=== PATIENT | male | born 1955 | race Caucasian/White ===

== ENCOUNTER 2017-11-22 12:39 | Outpatient (CLI) | payer MEDICARE ==
--- NOTE | 2017-11-22 13:21 | RAD ---
THREE VIEWS OF THE LUMBOSACRAL SPINE: COMPARISON: None. HISTORY: Low back pain radiating down the right leg with a burning sensation in the right thigh. FINDINGS: Lateral views of the lumbosacral spine were performed in neutral, flexion, and extension. The interv ertebral disks are narrowed throughout the lumbar spine. Moderate osteophytes are seen in the lower lumbar spine. Alignment is unchanged with flexion and extension without significant subluxation. Va scular calcifications are seen in the aorta. IMPRESSION: Degenerative changes of the lumbar spine with unchanged alignment with bending. POS: [facility]
--- NOTE | 2017-11-22 13:54 | MRI ---
MRI LUMBAR SPINE WITHOUT CONTRAST: HISTORY: Low back pain radiating down the right leg with a burning sensation in the right thigh. History of m ultiple falls. COMPARISON: None. TECHNIQUE: Multiplanar, multisequence MR images were obtained of the lumbar spine without contrast. FINDINGS: Generalized disk desiccation is seen. The vertebral bodies demonstrate normal height and alignment w ithout fracture or subluxation. Endplate degenerative changes are seen, surrounding L4/L5. The conu s medullaris terminates normally at L1. There are foci of high T2 signal in both kidneys, which repr esent simple cysts. The other prevertebral and paraspinal soft tissues are unremarkable. T12-L1: A small disk osteophyte complex is seen. No posterior facet arthrosis. Mild central canal stenosis. Mild bilateral neural foraminal stenosis. L1-L2: A small disk osteophyte complex is seen. No posterior facet arthrosis. Mild central canal s tenosis. Mild bilateral neural foraminal stenosis. L2-L3: A small disk osteophyte complex is seen. Mild bilateral posterior facet arthrosis. Mild musa tral canal stenosis. Mild bilateral neural foraminal stenosis. L3-L4: A moderate disk osteophyte complex is seen. Mild bilateral posterior facet arthrosis. Moder ate central canal stenosis. Mild to moderate bilateral neural foraminal stenosis. L4-L5: A moderate disk osteophyte complex is seen. Mild bilateral posterior facet arthrosis. Mild central canal stenosis. Moderate bilateral neural foraminal stenosis. L5-S1: A moderate disk osteophyte complex is seen. Mild to moderate bilateral posterior facet arthr osis. No central canal stenosis. Moderate bilateral neural foraminal stenosis, left greater than ri ght. IMPRESSION: Degenerative changes of the lumbar spine, as above. POS: [facility]
== END 2017-11-22 12:40 | disposition home or self-care (01) ==
LOC: TBSIIMAG 12:39
PROVIDERS: ATTEND Neurological Surgery
DX: M48.062 Spinal stenosis, lumbar region with neurogenic claudication (principal); M47.896 Other spondylosis, lumbar region
CPT/HCPCS: 72100; 72148

== ENCOUNTER 2017-12-26 05:27 | Inpatient (IN) | payer MEDICARE ==
[2017-12-23 13:23] VITALS: BMI 35.9
[2017-12-26] MEDS ORDERED: Sodium Chloride 0.9% 10 ML ONE (06:33)
[2017-12-26] MEDS ORDERED: Levofloxacin 500 mg/D5W 100 ml Premix Bag ONE (06:39)
[2017-12-26] MEDS ORDERED: Clindamycin/D5W 900 mg/50 ml Premix Bag ONE (06:39)
[2017-12-26 06:43] LABS: #Basophils 0.1 thou/uL (0.0-0.2); #Eosinphils 0.2 thou/uL (0.0-0.7); #Lymphocytes 1.6 thou/uL (1.20-3.40); #Monocytes 0.6 thou/uL (0.11-0.59); #Neutrophils 2.7 thou/uL (1.40-6.50); %Basophils 1.1 % (0.0-1.0); %Eosinophils 3.7 % (0.0-10.0); %Lymphocytes 30.9 % (21.0-51.0); %Monocytes 11.2 % (0.0-10.0); %Neutrophils 53.1 % (42.0-75.0); Hemoglobin 12.6 g/dL (14.0-18.0); Mean Corpuscular HGB CONC 33.8 g/dL (32.0-36.0); Mean Corpuscular Hemoglobin 31.6 pg (27.0-31.0); Mean Corpuscular Volume 93.5 fl (80.0-94.0); Platelet Count 126 thou/uL (130-400); RBC Distribution Width 13.8 % (11.5-14.5); White Blood Cell (WBC) Count 5.1 thou/uL (4.8-10.8)
[2017-12-26] MEDS ORDERED: HYDROmorphone 0.5 MG/0.5 ML SYRINGE ONE ×3 (06:59→08:45)
[2017-12-26 07:02] LABS: Anion Gap 12 mmol/L (10-20); BUN (Urea Nitrogen) 24 mg/dL (8.4-25.7); Calc. Creatinine Clearance 102 mL/min (70-130); Calcium 9.2 mg/dL (7.8-10.44); Carbon Dioxide 25 mmol/L (23-31); Chloride 106 mmol/L (98-107); Estimated GFR-MDRD 63; Glucose 162 mg/dL (80-115); Potassium 4.7 mmol/L (3.5-5.1); Sodium 138 mmol/L (136-145)
[2017-12-26] MEDS ORDERED: Ondansetron HCl/PF 4 MG/2 ML Vial ONE ×2 (08:03→11:33)
[2017-12-26] MEDS ORDERED: Promethazine HCl 25 MG/ML VIAL SLOW IVP PRN (08:23)
[2017-12-26] MEDS ORDERED: Promethazine HCl 25 MG/ML VIAL IM PRN ×2 (08:23→10:55)
[2017-12-26] MEDS ORDERED: Ondansetron HCl/PF 4 MG/2 ML Vial IVP PRN (08:23)
[2017-12-26] MEDS ORDERED: Meperidine HCl/PF 25 MG/ML VIAL SLOW IVP PRN (08:23)
--- NOTE | 2017-12-26 08:37 | OP ---
DATE OF PROCEDURE: 12/26/2017 SURGEON: Spencer James M.D. MEDICAL TRANSCRIPTION SUPERVISOR: ANGUS Lopez PROCEDURE: Right L3-4 laminectomy, facetectomy, foraminotomy, interbody arthrodesis, intravertebral biomechanical device, local morselized autograft, demineralized bone matrix, posterior lateral arthro desis and pedicle screw instrumentation, right L4-5. PROCEDURE IN DETAIL: The patient was brought to the operating room, intubated. He was rolled in the prone position on gel-filled chest rolls. Incision made exposing L3-4 bilaterally and our level was confirmed by x-ray. We performed a right-sided complete L3-4 laminectomy, facetectomy, foraminotomy , and completely decompressed the right L3-L4 lateral recess in the right L3 neural foramen. Next, t he disc was incised and debrided and the bony endplates decorticated for the purpose of arthrodesis. An appropriately sized intravertebral biomechanical PEEK device was brought into the field, filled w ith demineralized bone matrix, local morselized autograft, and tapped into place securely at L3-4. N ext, pedicle screws were placed at right L3 and right L4 using lateral fluoroscopic guidance and the positioning was confirmed with x-ray. A victoria was secured between the screws, connected by nuts which were final tightened. The wound was then extensively irrigated, immaculate hemostasis was secured. Vancomycin powder was applied and the wound was closed in anatomic layers over a drain.
[2017-12-26] MEDS ORDERED: Fentanyl 100 MCG/2 ML VIAL ONE ×8 (08:50→10:55)
[2017-12-26] MEDS ORDERED: Ketorolac Tromethamine 30 MG/ML VIAL ONE (08:57)
[2017-12-26] MEDS ORDERED: Promethazine HCl 25 MG/ML VIAL ONE (09:05)
[2017-12-26] MEDS ORDERED: Ketamine 50 MG/ML VIAL ONE (09:28)
[2017-12-26] MEDS ORDERED: Cyclobenzaprine 10 MG TAB ONE (10:13)
[2017-12-26] MEDS ORDERED: Ketamine 50 MG/ML VIAL SLOW IVP SCH (10:15)
[2017-12-26] MEDS ORDERED: Gabapentin 300 MG CAP PO SCH (10:16)
[2017-12-26] MEDS ORDERED: Gabapentin 300 MG CAP ONE (10:33)
[2017-12-26] MEDS ORDERED: Promethazine HCl 12.5 MG SUPP PR PRN (10:55)
[2017-12-26] MEDS ORDERED: HYDROcodone/Acetaminophen 10/325 mg Tablet PO PRN (10:55)
[2017-12-26] MEDS ORDERED: Milk Of Magnesia 30 ML UDCUP PO PRN (10:55)
[2017-12-26] MEDS ORDERED: Promethazine 25 MG TAB PO PRN (10:55)
[2017-12-26] MEDS ORDERED: Morphine 4 MG/ML Carpuject SLOW IVP PRN (10:55)
[2017-12-26] MEDS ORDERED: Prochlorperazine 10 MG/2 ML VIAL IM PRN (10:55)
[2017-12-26] MEDS ORDERED: Mag-Al 1200 mg/1200 mg/30 ML UDCUP PO PRN (10:55)
[2017-12-26] MEDS ORDERED: Ondansetron HCl/PF 4 MG/2 ML Vial IM PRN (10:57)
[2017-12-26] MEDS ORDERED: Morphine 4 MG/ML VIAL SLOW IVP PRN (10:59)
[2017-12-26] MEDS ORDERED: Dexamethasone 20 MG/5 ML VIAL ONE (11:33)
[2017-12-26] MEDS ORDERED: PHENYLEPHRINE-NS 100 MCG/ML 10 ML SYRINGE ONE (11:33)
[2017-12-26] MEDS ORDERED: ePHEDrine/0.9% NaCl/PF SYRINGE 50 mg/10 ml ONE (11:33)
[2017-12-26] MEDS ORDERED: PROPOFOL 200 MG/20 ML VIAL ONE (11:33)
[2017-12-26] MEDS ORDERED: Glycopyrrolate 0.2 MG/ML 5 ML SYRINGE ONE (11:33)
[2017-12-26] MEDS ORDERED: Lidocaine 1% PF 5 ML VIAL ONE (11:33)
[2017-12-26] MEDS: fentaNYL 50 mcg/hour Patch TD SCH (14:54)
[2017-12-26] MEDS ORDERED: Ketorolac Tromethamine 30 MG/ML VIAL IVP SCH (15:00)
[2017-12-26] MEDS: HYDROcodone/Acetaminophen 10/325 mg Tablet PO PRN ×2 (15:06→18:46)
[2017-12-26] MEDS: Clindamycin/D5W 900 MG in Premix Bag 1 BAG IVPB SCH (16:21)
[2017-12-26] MEDS: glipiZIDE 10 MG TAB PO SCH (18:15)
[2017-12-26] MEDS: Nitroglycerin 0.4 MG TAB (25 Tab Bottle) ONE ×2 (19:32→20:32)
[2017-12-26] MEDS: Morphine 4 MG/ML VIAL SLOW IVP PRN (19:36)
[2017-12-26 20:03] LABS: #Basophils 0.1 thou/uL (0.0-0.2); #Lymphocytes 0.4 thou/uL (1.20-3.40); #Monocytes 0.4 thou/uL (0.11-0.59); #Neutrophils 5.8 thou/uL (1.40-6.50); %Basophils 0.9 % (0.0-1.0); %Eosinophils 0.2 % (0.0-10.0); %Lymphocytes 5.6 % (21.0-51.0); %Monocytes 5.5 % (0.0-10.0); %Neutrophils 87.9 % (42.0-75.0); Hemoglobin 11.9 g/dL (14.0-18.0); Mean Corpuscular Hemoglobin 31.6 pg (27.0-31.0); Mean Corpuscular Volume 95.9 fl (80.0-94.0); Mean Platelet Volume 7.1 fL (7.4-10.4); Platelet Count 101 thou/uL (130-400); RBC Distribution Width 13.9 % (11.5-14.5); Red Blood Cell (RBC) Count 3.76 mill/uL (4.70-6.10); White Blood Cell (WBC) Count 6.6 thou/uL (4.8-10.8)
[2017-12-26 20:10] LABS: Anion Gap 18 mmol/L (10-20); BUN (Urea Nitrogen) 29 mg/dL (8.4-25.7); Calc. Creatinine Clearance 75 mL/min (70-130); Calcium 8.1 mg/dL (7.8-10.44); Carbon Dioxide 19 mmol/L (23-31); Chloride 101 mmol/L (98-107); Estimated GFR-MDRD 44; Glucose 524 mg/dL (80-115); Potassium 5.8 mmol/L (3.5-5.1); Sodium 132 mmol/L (136-145)
[2017-12-26 20:15] LABS: Troponin I Less than 0.010 ng/mL (< 0.028)
[2017-12-26 20:20] LABS: CKMB 10.5 ng/mL (0-6.6)
[2017-12-26] MEDS ORDERED: Nitroglycerin 0.4 MG TAB (25 Tab Bottle) SL PRN (20:37)
[2017-12-26] MEDS ORDERED: Dextrose 50% Abboject 50 ML SYRINGE SLOW IVP PRN (20:41)
[2017-12-26] MEDS ORDERED: Dextrose 5% in Water 1,000 ML IV PRN (20:41)
--- NOTE | 2017-12-26 20:44 | PDOC.EVN ---
Event Note - Event Note Event Note: Code green called. Patient with acute onset right chest pain radiating to jaw. Associated with diaphoresis. Resolved with nitro and morphine. Patient with hx of CAD and posterior MN. EKG without acute ST segment changes. CKMB up at 10, neg troponin. Moved patient to telemetry, checking serial cardiac markers. Patient with DM and bs 500. Adding mod ISS and restarting home DM medications. Cardiology consult for the morning.
--- NOTE | 2017-12-26 20:50 | PDOC.PN ---
- Subjective Encounter Start Date: 12/26/17 Encounter Start Time: 16:00 -: old records requested/rev consulted for medical management, s/p lumbar laminectomy, currently pain is controlled, he has drain in place Patient seen and examined. No new complaints. pt was seen at 4 pm, note written late he had code green for chest pain - Objective MAR Reviewed: Yes Vital Signs & Weight: Vital Signs (12 hours) Temp Pulse Resp 12/26/17 11:45 98.0 F 93 16 Weight Weight 250 lb I&O: 12/25/17 12/26/17 12/27/17 06:59 06:59 06:59 Intake Total 890 Output Total 650 Balance 240 Result Diagrams: 12/26/17 19:32 12/26/17 19:32 Additional Labs: Accuchecks 12/26/17 08:01 POC Glucose 260 H Radiology Reviewed by me: Yes (lumbar spine MRI) EKG Reviewed by me: Yes Phys Exam - Physical Examination Constitutional: NAD HEENT: PERRLA, moist MMs, sclera anicteric Neck: no nodes, no JVD, supple, full ROM Respiratory: no wheezing, no rales, no rhonchi Cardiovascular: RRR, no significant murmur, no rub Gastrointestinal: soft, non-tender, no distention, positive bowel sounds obesity Musculoskeletal: no edema, pulses present surgical site with dressing and drain in place Neurological: non-focal, normal sensation, moves all 4 limbs Lymphatic: no nodes Psychiatric: normal affect, A&O x 3 Skin: no rash, normal turgor Dx/Plan (1) Acute kidney failure Status: Acute (2) Hyperkalemia Code(s): E87.5 - HYPERKALEMIA Status: Acute (3) S/P lumbar laminectomy Code(s): Z98.890 - OTHER SPECIFIED POSTPROCEDURAL STATES Status: Acute (4) Diabetes type 2, uncontrolled Code(s): E11.65 - TYPE 2 DIABETES MELLITUS WITH HYPERGLYCEMIA Status: Chronic (5) Dyslipidemia Code(s): E78.5 - HYPERLIPIDEMIA, UNSPECIFIED Status: Chronic (6) Hypertension Code(s): I10 - ESSENTIAL (PRIMARY) HYPERTENSION Status: Chronic (7) Obesity (BMI 30-39.9) Code(s): E66.9 - OBESITY, UNSPECIFIED Status: Chronic (8) CAD (coronary artery disease) Code(s): I25.10 - ATHSCL HEART DISEASE OF [place] CORONARY ARTERY W/O ANG PCTRS Status: Chronic (9) Chest pain Code(s): R07.9 - CHEST PAIN, UNSPECIFIED Status: Acute - Plan cont current plan of care, PT/OT * home medication reconciled * DC ramipril for hyperkalemia * DC toradol for acute kidney failure * start IVF at 100 ml per hour * serial cardiac enzyme for chest pain * cardio consulted * will get echo tomorrow * repeat labs tomorrow * drain care as per surgeon * pain control with pain meds * medication reviewed as below * symptomatic treatment * hyperglycemia protocol treatment * add protonix daily * code status: full code * will monitor on tele. Review of Systems - Review of Systems Constitutional: negative: fever, chills, sweats, weakness, malaise, other Eyes: negative: Pain, Vision Change, Conjunctivae Inflammation, Eyelid Inflammation, Redness, Other ENT: negative: Ear Pain, Ear Discharge, Nose Pain, Nose Discharge, Nose Congestion, Mouth Pain, Mouth Swelling, Throat Pain, Throat Swelling, Other Respiratory: negative: Cough, Dry, Shortness of Breath, Hemoptysis, SOB with Excertion, Pleuritic Pain, Sputum, Wheezing Cardiovascular: chest pain. negative: palpitations, orthopnea, paroxysmal nocturnal dyspnea, edema, light headedness, other Gastrointestinal: negative: Nausea, Vomiting, Abdominal Pain, Diarrhea, Constipation, Melena, Hematochezia, Other Genitourinary: negative: Dysuria, Frequency, Incontinence, Hematuria, Retention , Other Musculoskeletal: Back Pain. negative: Neck Pain, Shoulder Pain, Arm Pain, Hand Pain, Leg Pain, Foot Pain, Other Skin: negative: Rash, Lesions, Augie, Bruising, Other Neurological: negative: Weakness, Numbness, Incoordination, Change in Speech, Confusion, Seizures, Other - Medications/Allergies Allergies/Adverse Reactions: Allergies Allergy/AdvReac Type Severity Reaction Status Date / Time Penicillins Allergy Mild Verified 12/23/17 13:20 Medications: Current Medications Hydrocodone Bitart/Acetaminophen ([place] 10/325) 1 tab PO Q4H PRN PRN Reason: PAIN (1-3) Hydrocodone Bitart/Acetaminophen ([place] 10/325) 2 tab PO Q4H PRN PRN Reason: PAIN (4-6) Last Admin: 12/26/17 18:46 Dose: 2 tab Al Hydroxide/Mg Hydroxide (Maalox) 30 ml PO Q4H PRN PRN Reason: Heartburn or Indigestion Atorvastatin Calcium (Lipitor) 10 mg PO HS [facility] Cholecalciferol (Vitamin D3) 1,000 units PO DAILY [facility] Citalopram Hydrobromide (Celexa) 20 mg PO DAILY [facility] Cyclobenzaprine HCl (Flexeril) 10 mg PO Q8H PRN PRN Reason: Muscle Spasm Cyclobenzaprine HCl (Flexeril) 10 mg PO DAILY [facility] Dextrose/Water (Dextrose 50%) 25 gm SLOW IVP PRN PRN PRN Reason: Hypoglycemia Fentanyl (Duragesic) 50 mcg TD NOW [facility] Stop: 12/29/17 10:16 Last Admin: 12/26/17 14:54 Dose: Not Given Gabapentin (Neurontin) 300 mg PO BID [facility] Glipizide (Glucotrol) 10 mg PO BID[facility] Last Admin: 12/26/17 18:15 Dose: 10 mg Glucagon (Glucagon) 1 mg IM PRN PRN PRN Reason: Hypoglycemia Clindamycin Phosphate/Dextrose (900 mg/ Device) 50 mls @ 100 mls/hr IVPB 0000, 1600 [facility] Stop: 12/27/17 00:29 Last Admin: 12/26/17 16:21 Dose: 50 mls Dextrose/Water (D5w) 1,000 mls @ 0 mls/hr IV .Q0M PRN; As Directed PRN Reason: Hypoglycemia Sodium Chloride (Normal Saline 0.9%) 1,000 mls @ 100 mls/hr IV .Q10H [facility] Insulin Human Lispro (Humalog) 0 units SC .MODERATE SLIDING SC PRN PRN Reason: Moderate Correctional Scale Insulin Human Lispro (Humalog) 0 units SC .BEDTIME SLIDING SC PRN PRN Reason: Bedtime Correctional Scale Magnesium Hydroxide (Milk Of Magnesium) 30 ml PO Q12H PRN PRN Reason: Constipation Morphine Sulfate (Morphine) 2 mg SLOW IVP Q1H PRN PRN Reason: Moderate BREAKTHRU PAIN Morphine Sulfate (Morphine) 4 mg SLOW IVP Q1H PRN PRN Reason: SEVERE BREAKTHRU PAIN Last Admin: 12/26/17 19:36 Dose: 4 mg Nitroglycerin (Nitrostat) 0.4 mg SL Q5MIN PRN PRN Reason: Chest Pain Invokana 300 Mg Po 0 each PO DAILY [facility] Victoza Inj 0 each SC DAILY [facility] Ondansetron HCl (Zofran) 4 mg IM Q6H PRN PRN Reason: Nausea/Vomiting Pioglitazone HCl (Actos) 15 mg PO DAILY [facility] Multivit/Folic Acid/Iron ( Vitamin) 1 tab PO DAILY [facility] Prochlorperazine Edisylate (Compazine) 10 mg IM Q6H PRN PRN Reason: Nausea Promethazine HCl (Phenergan) 12.5 mg IM Q4H PRN PRN Reason: Nausea/Vomiting Promethazine HCl (Phenergan) 12.5 mg PO Q4H PRN PRN Reason: Nausea/Vomiting Promethazine HCl (Phenergan Suppository) 12.5 mg [place] Q4H PRN PRN Reason: Nausea/Vomiting Sodium Chloride (Flush - Normal Saline) 10 ml IVF Q12HR [facility] Sodium Chloride (Flush - Normal Saline) 10 ml IVF PRN PRN PRN Reason: Saline Flush
[2017-12-26] MEDS ORDERED: Temazepam 15 MG CAP PO PRN (21:00)
[2017-12-26] MEDS ORDERED: Artificial Tears 18 DROP/0.9 ML EA EYE PRN (21:00)
[2017-12-26] MEDS ORDERED: Chloraseptic Spray 180 ml Bottle PO PRN (21:00)
[2017-12-26] MEDS ORDERED: Loperamide HCl 2 MG CAP PO PRN (21:00)
[2017-12-26] MEDS ORDERED: Sodium Chloride 0.65% Nasal 44 ML BOT EA NARE PRN (21:00)
[2017-12-26] MEDS ORDERED: Acetaminophen 325 MG TAB PO PRN (21:00)
[2017-12-26] MEDS ORDERED: Hydrocerin (Eucerin) Cream 120 gm Jar TOP PRN (21:00)
[2017-12-26] MEDS ORDERED: Senokot 8.6 MG TAB PO PRN (21:00)
[2017-12-26] MEDS ORDERED: Labetalol HCl 100 MG/20 ML VIAL SLOW IVP PRN (21:00)
[2017-12-26] MEDS ORDERED: Loratadine 10 MG TAB PO PRN (21:00)
[2017-12-26] MEDS ORDERED: Ramipril 5 MG CAP PO SCH (21:00)
[2017-12-26] MEDS ORDERED: Diabetic Tussin 200 MG/10 ML UDCUP PO PRN (21:00)
[2017-12-26] MEDS: Gabapentin 300 MG CAP PO SCH (22:19)
[2017-12-26] MEDS: Sodium Chloride 0.9% 1,000 ML IV SCH (22:19)
[2017-12-26] MEDS: Nitroglycerin 2% Ointment 1 INCH/1 GM Packet TOP SCH (22:20)
[2017-12-26] MEDS: Metoprolol Tartrate 25 MG TAB PO SCH (22:20)
[2017-12-26] MEDS: Atorvastatin Calcium 10 MG TAB PO SCH (22:20)
[2017-12-27 01:12] LABS: CKMB 10.3 ng/mL (0-6.6); Critical Call CKMBM RESULT DECREASING
[2017-12-27] MEDS: HYDROcodone/Acetaminophen 5/325 mg Tablet PO PRN ×4 (02:01→17:55)
[2017-12-27] MEDS: Clindamycin/D5W 900 MG in Premix Bag 1 BAG IVPB SCH ×3 (02:01→22:01)
[2017-12-27] MEDS: HumaLOG 300 UNITS/3 ML VIAL SC PRN ×5 (02:02→22:02)
[2017-12-27 04:49] LABS: Hemoglobin A1c 6.1 % (4.0-6.0)
[2017-12-27 04:56] LABS: #Lymphocytes 0.7 thou/uL (1.20-3.40); #Neutrophils 5.5 thou/uL (1.40-6.50); %Basophils 0.1 % (0.0-1.0); %Eosinophils 0.2 % (0.0-10.0); %Lymphocytes 9.2 % (21.0-51.0); %Monocytes 13.3 % (0.0-10.0); %Neutrophils 77.1 % (42.0-75.0); Hemoglobin 10.3 g/dL (14.0-18.0); Mean Corpuscular HGB CONC 33.4 g/dL (32.0-36.0); Mean Corpuscular Hemoglobin 31.8 pg (27.0-31.0); Mean Corpuscular Volume 95.1 fl (80.0-94.0); Mean Platelet Volume 7.3 fL (7.4-10.4); Platelet Count 105 thou/uL (130-400); RBC Distribution Width 13.7 % (11.5-14.5); Red Blood Cell (RBC) Count 3.25 mill/uL (4.70-6.10); White Blood Cell (WBC) Count 7.2 thou/uL (4.8-10.8)
[2017-12-27 05:18] LABS: CKMB 9.4 ng/mL (0-6.6)
[2017-12-27 05:42] LABS: ALT (SGPT) 41 U/L (8-55); AST (SGOT) 39 U/L (5-34); Albumin 3.6 g/dL (3.4-4.8); Alkaline Phosphatase 63 U/L (40-150); Anion Gap 14 mmol/L (10-20); BUN (Urea Nitrogen) 34 mg/dL (8.4-25.7); Calc. Creatinine Clearance 82 mL/min (70-130); Calcium 8.1 mg/dL (7.8-10.44); Carbon Dioxide 21 mmol/L (23-31); Cardiac Risk 3.8 (Less than 4.5); Chloride 103 mmol/L (98-107); Cholesterol 129 mg/dl (< 200 Desired); Estimated GFR-MDRD 49; Globulin 2.5 g/dL (2.4-3.5); Glucose 325 mg/dL (80-115); HDL Cholesterol 34 mg/dL (>60 Neg Risk); LDL Cholesterol, Calculated 65 mg/dL; Potassium 5.1 mmol/L (3.5-5.1); Protein, Total 6.1 g/dL (5.8-8.1); Sodium 133 mmol/L (136-145); Triglycerides 149 mg/dL (Less than 150)
[2017-12-27] MEDS: Nitroglycerin 2% Ointment 1 INCH/1 GM Packet TOP SCH ×3 (06:31→22:02)
[2017-12-27] MEDS: fentaNYL 50 mcg/hour Patch TD SCH (07:51)
[2017-12-27] MEDS: Sodium Chloride 0.9% 1,000 ML IV SCH ×3 (08:46→20:33)
[2017-12-27] MEDS: glipiZIDE 10 MG TAB PO SCH ×2 (08:47→16:42)
[2017-12-27] MEDS: Morphine 4 MG/ML VIAL SLOW IVP PRN (08:48)
[2017-12-27] MEDS: Gabapentin 300 MG CAP PO SCH ×2 (08:50→20:32)
[2017-12-27] MEDS: Metoprolol Tartrate 25 MG TAB PO SCH ×2 (08:50→20:32)
[2017-12-27] MEDS: Cyclobenzaprine 10 MG TAB PO SCH (08:50)
[2017-12-27] MEDS: Prenatal Vitamin 1 TAB PO SCH (08:51)
[2017-12-27] MEDS: Citalopram 20 MG TAB PO SCH (08:51)
[2017-12-27] MEDS: Pioglitazone HCl 15 MG TAB PO SCH (08:51)
[2017-12-27] MEDS ORDERED: INVOKANA 300 MG SCH (09:00)
[2017-12-27] MEDS ORDERED: Non-Formulary Item 1 EACH (Canagliflozin [Invokana] 300 MG) PO SCH (09:00)
[2017-12-27] MEDS ORDERED: Non-Formulary Item 1 EACH (Liraglutide [Victoza 3-Pak] 1.8 MG) SC SCH (09:00)
[2017-12-27] MEDS ORDERED: VICTOZA INJ SC SCH (09:00)
--- NOTE | 2017-12-27 12:35 | PDOC.PN ---
- Subjective Encounter Start Date: 12/27/17 Encounter Start Time: 07:40 Patient seen and examined for medical management, no chest pain today, only has back pain. No overnight events - Objective Resuscitation Status: Resuscitation Status FULL:Full Resuscitation MAR Reviewed: Yes Vital Signs & Weight: Vital Signs (12 hours) Temp Pulse Resp BP Pulse Ox 12/27/17 09:40 95 12/27/17 08:40 97.4 F L 95 18 153/70 H 100 12/27/17 04:00 98.7 F 79 19 103/54 L 94 L 12/27/17 00:44 98.9 F 87 16 139/60 95 Weight Weight 250 lb I&O: 12/26/17 12/27/17 12/28/17 06:59 06:59 06:59 Intake Total 890 Output Total 800 60 Balance 90 -60 Result Diagrams: 12/27/17 03:42 12/27/17 03:42 Additional Labs: Accuchecks 12/27/17 12/27/17 12/27/17 10:40 06:23 00:05 POC Glucose 242 H 341 H 387 H 12/26/17 19:30 POC Glucose 509 H EKG Reviewed by me: Yes (nsr) Phys Exam - Physical Examination Constitutional: NAD HEENT: PERRLA, moist MMs, sclera anicteric Neck: no JVD, supple Respiratory: no wheezing, no rales, no rhonchi Cardiovascular: RRR, no significant murmur, no rub Gastrointestinal: soft, non-tender, no distention, positive bowel sounds Musculoskeletal: no edema, pulses present drain in back+ Neurological: non-focal, normal sensation, moves all 4 limbs Lymphatic: no nodes Psychiatric: normal affect, A&O x 3 Skin: no rash, normal turgor Dx/Plan (1) Acute kidney failure Status: Acute Comment: improving (2) Hyperkalemia Code(s): E87.5 - HYPERKALEMIA Status: Resolved (3) S/P lumbar laminectomy Code(s): Z98.890 - OTHER SPECIFIED POSTPROCEDURAL STATES Status: Acute (4) Diabetes type 2, uncontrolled Code(s): E11.65 - TYPE 2 DIABETES MELLITUS WITH HYPERGLYCEMIA Status: Chronic (5) Dyslipidemia Code(s): E78.5 - HYPERLIPIDEMIA, UNSPECIFIED Status: Chronic (6) Hypertension Code(s): I10 - ESSENTIAL (PRIMARY) HYPERTENSION Status: Chronic (7) Obesity (BMI 30-39.9) Code(s): E66.9 - OBESITY, UNSPECIFIED Status: Chronic (8) CAD (coronary artery disease) Code(s): I25.10 - ATHSCL HEART DISEASE OF [place] CORONARY ARTERY W/O ANG PCTRS Status: Chronic (9) Chest pain Code(s): R07.9 - CHEST PAIN, UNSPECIFIED Status: Resolved (10) Rhabdomyolysis Code(s): M62.82 - RHABDOMYOLYSIS Status: Acute (11) Anxiety and depression Code(s): F41.9 - ANXIETY DISORDER, UNSPECIFIED; F32.9 - MAJOR DEPRESSIVE DISORDER, SINGLE EPISODE, UNSPECIFIED Status: Chronic - Plan cont current plan of care, plan discussed w/ family, PT/OT * continue gentle IVF * repeat labs tomorrow * cardiology consulted * echo pending * discussed with * still draining lot in VIVIANE drain * medication reviewed as below * symptomatic treatment. * will monitor one more day * possible discharge tomorrow Review of Systems - Review of Systems Constitutional: negative: fever, chills, sweats, weakness, malaise, other Eyes: negative: Pain, Vision Change, Conjunctivae Inflammation, Eyelid Inflammation, Redness, Other ENT: negative: Ear Pain, Ear Discharge, Nose Pain, Nose Discharge, Nose Congestion, Mouth Pain, Mouth Swelling, Throat Pain, Throat Swelling, Other Respiratory: negative: Cough, Dry, Shortness of Breath, Hemoptysis, SOB with Excertion, Pleuritic Pain, Sputum, Wheezing Cardiovascular: negative: chest pain, palpitations, orthopnea, paroxysmal nocturnal dyspnea, edema, light headedness, other Gastrointestinal: negative: Nausea, Vomiting, Abdominal Pain, Diarrhea, Constipation, Melena, Hematochezia, Other Genitourinary: negative: Dysuria, Frequency, Incontinence, Hematuria, Retention , Other Musculoskeletal: Back Pain. negative: Neck Pain, Shoulder Pain, Arm Pain, Hand Pain, Leg Pain, Foot Pain, Other - Medications/Allergies Allergies/Adverse Reactions: Allergies Allergy/AdvReac Type Severity Reaction Status Date / Time Penicillins Allergy Mild Verified 12/23/17 13:20 Medications: Current Medications Acetaminophen (Tylenol) 650 mg PO Q4H PRN PRN Reason: Headache/Fever or Mild Pain Hydrocodone Bitart/Acetaminophen ([place] 5/325) 1 tab PO Q4H PRN PRN Reason: Moderate Pain (4-6) Last Admin: 12/27/17 11:58 Dose: 1 tab Al Hydroxide/Mg Hydroxide (Maalox) 30 ml PO Q4H PRN PRN Reason: Heartburn or Indigestion Artificial Tears (Tears Naturale) 0 drop EA EYE PRN PRN PRN Reason: Dry Eyes Atorvastatin Calcium (Lipitor) 10 mg PO [facility] Last Admin: 12/26/17 22:20 Dose: 10 mg Cholecalciferol (Vitamin D3) 1,000 units PO DAILY [facility] Last Admin: 12/27/17 08:50 Dose: 1,000 units Citalopram Hydrobromide (Celexa) 20 mg PO DAILY [facility] Last Admin: 12/27/17 08:51 Dose: 20 mg Cyclobenzaprine HCl (Flexeril) 10 mg PO Q8H PRN PRN Reason: Muscle Spasm Cyclobenzaprine HCl (Flexeril) 10 mg PO DAILY [facility] Last Admin: 12/27/17 08:50 Dose: 10 mg Dextrose/Water (Dextrose 50%) 25 gm SLOW IVP PRN PRN PRN Reason: Hypoglycemia Emollient Cream (Hydrocerin Cream) 0 gm TOP BIDPRN PRN PRN Reason: Dry Skin Fentanyl (Duragesic) 50 mcg TD NOW [facility] Stop: 12/29/17 10:16 Last Admin: 12/27/17 07:51 Dose: Not Given Gabapentin (Neurontin) 300 mg PO BID [facility] Last Admin: 12/27/17 08:50 Dose: 300 mg Glipizide (Glucotrol) 10 mg PO BID-AC [facility] Last Admin: 12/27/17 08:47 Dose: 10 mg Glucagon (Glucagon) 1 mg IM PRN PRN PRN Reason: Hypoglycemia Guaifenesin (Robitussin Sf) 200 mg PO Q4H PRN PRN Reason: Cough Dextrose/Water (D5w) 1,000 mls @ 0 mls/hr IV .Q0M PRN; As Directed PRN Reason: Hypoglycemia Sodium Chloride (Normal Saline 0.9%) 1,000 mls @ 100 mls/hr IV .Q10H [facility] Last Admin: 12/27/17 08:46 Dose: 1,000 mls Clindamycin Phosphate/Dextrose (900 mg/ Device) 50 mls @ 100 mls/hr IVPB Q8HR [facility] Insulin Human Lispro (Humalog) 0 units SC .MODERATE SLIDING SC PRN PRN Reason: Moderate Correctional Scale Last Admin: 12/27/17 12:00 Dose: 6 unit Insulin Human Lispro (Humalog) 0 units SC .BEDTIME SLIDING SC PRN PRN Reason: Bedtime Correctional Scale Last Admin: 12/27/17 02:02 Dose: 5 unit Labetalol HCl (Normodyne) 20 mg SLOW IVP Q4H PRN PRN Reason: Systolic BP > 180 Loperamide HCl (Imodium) 2 mg PO PRN PRN PRN Reason: Diarrhea/Loose Stools Loratadine (Claritin) 10 mg PO DAILYPRN PRN PRN Reason: Sinus Symptoms Magnesium Hydroxide (Milk Of Magnesium) 30 ml PO Q12H PRN PRN Reason: Constipation Metoprolol Tartrate (Lopressor) 25 mg PO BID [facility] Last Admin: 12/27/17 08:50 Dose: 25 mg Morphine Sulfate (Morphine) 2 mg SLOW IVP Q1H PRN PRN Reason: Moderate BREAKTHRU PAIN Morphine Sulfate (Morphine) 4 mg SLOW IVP Q1H PRN PRN Reason: SEVERE BREAKTHRU PAIN Last Admin: 12/27/17 08:48 Dose: 4 mg Nitroglycerin (Nitrostat) 0.4 mg SL Q5MIN PRN PRN Reason: Chest Pain Nitroglycerin (Nitro-Bid 2% Ointment) 0.5 inch TOP Q8HR [facility] Last Admin: 12/27/17 06:31 Dose: 0.5 inch Ondansetron HCl (Zofran) 4 mg IM Q6H PRN PRN Reason: Nausea/Vomiting Phenol (Chloraseptic [place] 180 Ml Bot) 0 ml PO PRN PRN PRN Reason: Sore Throat Pioglitazone HCl (Actos) 15 mg PO DAILY [facility] Last Admin: 12/27/17 08:51 Dose: 15 mg Multivit/Folic Acid/Iron ( Vitamin) 1 tab PO DAILY [facility] Last Admin: 12/27/17 08:51 Dose: 1 tab Prochlorperazine Edisylate (Compazine) 10 mg IM Q6H PRN PRN Reason: Nausea Promethazine HCl (Phenergan) 12.5 mg IM Q4H PRN PRN Reason: Nausea/Vomiting Promethazine HCl (Phenergan) 12.5 mg PO Q4H PRN PRN Reason: Nausea/Vomiting Promethazine HCl (Phenergan Suppository) 12.5 mg [place] Q4H PRN PRN Reason: Nausea/Vomiting Senna (Senokot) 2 tab PO HSPRN PRN PRN Reason: Constipation Last Admin: 12/27/17 08:50 Dose: 2 tab Sodium Chloride (Flush - Normal Saline) 10 ml IVF Q12HR [facility] Last Admin: 12/27/17 08:53 Dose: 10 ml Sodium Chloride (Flush - Normal Saline) 10 ml IVF PRN PRN PRN Reason: Saline Flush Sodium Chloride ([place] Nasal [place] 0.65%) 0 ml EA NARE QIDPRN PRN PRN Reason: Nasal Congestion Temazepam (Restoril) 15 mg PO HSPRN PRN PRN Reason: Insomnia
--- NOTE | 2017-12-27 14:15 | CON ---
DATE OF CONSULTATION: 12/27/2017 REASON FOR CONSULTATION: Chest pain and hypertension. HISTORY OF PRESENT ILLNESS: Mr. Harper is a very pleasant 62-year-old gentleman who has been seen and evaluated by Cardiology in [place], [place]. He has a history of complete chronic occlusion of the right coronary artery in addition to 40% and 60% stenosis of other vessels. This was diagnosed in 04 05. He has intermittently needed nitroglycerin for chest pain with exertion. His chest pain though has been stable over the last 9 years. He states his chest pain has not changed in frequency, intens ity or duration. He recently underwent lumbar surgery. He had an acute onset of chest pain. His blood pressure at th at time was also 200. Kamini Casey was called. He states he took 4 sublingual nitroglycerins with rel ief. At this point, he is resting comfortably. He did receive a recent stress test in addition to clearance by his primary dollyman in [place]. PAST MEDICAL HISTORY: Hyperlipidemia, diabetes mellitus, hypertension and CAD. ALLERGIES: PENICILLIN. SOCIAL HISTORY: No current tobacco or alcohol use. REVIEW OF SYSTEMS: Ten-point review of systems reviewed and as above, otherwise negative. HOME MEDICATIONS: Include fentanyl, vitamin D3, folic acid, Flexeril, citalopram, simvastatin, gabap entin, ramipril, Glucotrol, Invokana, Actos and Victoza. PHYSICAL EXAMINATION: GENERAL: Patient is a pleasant male who is in no acute distress. The patient appears his stated age . VITAL SIGNS: Blood pressure 153/70, pulse 95, temperature 97.4. NEUROLOGIC: The patient is alert and oriented times 3 with no focal neurologic deficits. HEENT: Sclerae without icterus. Mouth has moist mucous membranes with normal pallor. NECK: No JVD. Carotid upstroke brisk. No bruits bilaterally. LUNGS: Clear to auscultation with unlabored respirations. BACK: No scoliosis or kyphosis. CARDIAC: Regular rate and rhythm with normal S1 and S2. No S3 or S4 noted. No significant rubs, mur murs, thrills, or gallops noted throughout the precordium. PMI is not displaced. There is no parast ernal heave. ABDOMEN: Soft, nontender, nondistended. No peritoneal signs present. No hepatosplenomegaly. No abnormal striae. EXTREMITIES: 2+ femoral and 2+ dorsalis pedis pulses. No cyanosis, clubbing, or edema. SKIN: No gross abnormalities. PERTINENT LABORATORY DATA: CK troponin negative. Hemoglobin 10.3, creatinine 1.4. IMAGING DATA: EKG, normal sinus rhythm with no ST or T wave changes. IMPRESSION: 1. Acute onset chest pain. 2. Malignant hypertension. 3. Coronary artery disease. RECOMMENDATIONS: Mr. Harper recently underwent a lumbar surgery. His symptoms may be related to m alignant hypertension. It is hard to state whether his pain occurred prior to his increased blood pr essure. His blood pressure was 200 with appropriate response to nitroglycerin. At this point, would recommend conservative therapy given his recent lumbar surgery and the fact that he had no EKG streeter es and negative enzymes. Would start aspirin as soon as cleared by Dr. James. Continue atorvasta tin in addition to metoprolol. May consider increasing metoprolol if needed. May also add low dose losartan. Echo pending.
[2017-12-27] MEDS: Cyclobenzaprine 10 MG TAB PO PRN (15:05)
[2017-12-27] MEDS: Atorvastatin Calcium 10 MG TAB PO SCH (20:33)
[2017-12-28] MEDS: HYDROcodone/Acetaminophen 5/325 mg Tablet PO PRN ×2 (03:53→08:16)
[2017-12-28] MEDS: Morphine 4 MG/ML VIAL SLOW IVP PRN (04:38)
[2017-12-28] MEDS: Cyclobenzaprine 10 MG TAB PO PRN (04:39)
[2017-12-28 05:23] LABS: #Eosinphils 0.2 thou/uL (0.0-0.7); #Lymphocytes 1.7 thou/uL (1.20-3.40); #Monocytes 0.9 thou/uL (0.11-0.59); #Neutrophils 5.9 thou/uL (1.40-6.50); %Basophils 0.3 % (0.0-1.0); %Eosinophils 2.5 % (0.0-10.0); %Lymphocytes 19.7 % (21.0-51.0); %Neutrophils 67.5 % (42.0-75.0); Hemoglobin 11.2 g/dL (14.0-18.0); Mean Corpuscular HGB CONC 33.1 g/dL (32.0-36.0); Mean Corpuscular Hemoglobin 31.7 pg (27.0-31.0); Mean Corpuscular Volume 95.7 fl (80.0-94.0); Mean Platelet Volume 7.2 fL (7.4-10.4); Platelet Count 128 thou/uL (130-400); RBC Distribution Width 14.2 % (11.5-14.5); Red Blood Cell (RBC) Count 3.53 mill/uL (4.70-6.10); White Blood Cell (WBC) Count 8.7 thou/uL (4.8-10.8)
[2017-12-28 05:40] LABS: Anion Gap 12 mmol/L (10-20); BUN (Urea Nitrogen) 25 mg/dL (8.4-25.7); CK (CPK) 476 U/L (30-200); Calc. Creatinine Clearance 129 mL/min (70-130); Calcium 8.5 mg/dL (7.8-10.44); Carbon Dioxide 24 mmol/L (23-31); Chloride 105 mmol/L (98-107); Estimated GFR-MDRD 74; Glucose 97 mg/dL (80-115); Potassium 4.8 mmol/L (3.5-5.1); Sodium 136 mmol/L (136-145)
[2017-12-28] MEDS: Clindamycin/D5W 900 MG in Premix Bag 1 BAG IVPB SCH (05:48)
[2017-12-28] MEDS: Nitroglycerin 2% Ointment 1 INCH/1 GM Packet TOP SCH (05:48)
[2017-12-28] MEDS: Pioglitazone HCl 15 MG TAB PO SCH (08:11)
[2017-12-28] MEDS: Cyclobenzaprine 10 MG TAB PO SCH (08:11)
[2017-12-28] MEDS: Prenatal Vitamin 1 TAB PO SCH (08:11)
[2017-12-28] MEDS: Citalopram 20 MG TAB PO SCH (08:11)
[2017-12-28] MEDS: Metoprolol Tartrate 25 MG TAB PO SCH (08:11)
[2017-12-28] MEDS: glipiZIDE 10 MG TAB PO SCH (08:12)
[2017-12-28] MEDS: Gabapentin 300 MG CAP PO SCH (08:12)
[2017-12-28 08:21] VITALS: TEMP 99.1
[2017-12-28] MEDS: fentaNYL 50 mcg/hour Patch TD SCH (11:56)
[2017-12-28 11:58] VITALS: BP 107/58
--- NOTE | 2017-12-28 12:34 | DIS ---
DATE OF ADMISSION: 12/26/2017 DATE OF DISCHARGE: 12/28/2017 PRIMARY CARE PHYSICIAN: [facility] call admission. DISCHARGE DISPOSITION: Home. PRIMARY DISCHARGE DIAGNOSES: 1. Status post lumbar laminectomy. 2. Acute kidney failure. 3. Rhabdomyolysis. 4. Chest pain, ruled out acute coronary syndrome. 5. Hyperkalemia, resolved. SECONDARY DISCHARGE DIAGNOSES: Obesity with body mass index 39, hypertension, dyslipidemia, diabetes type 2, coronary artery disease and chronic low back pain. PRIMARY PROCEDURE/OPERATION: Lumbar laminectomy. RADIOLOGICAL INVESTIGATION: Echocardiography showed normal EF. SIGNIFICANT LABORATORY DATA: WBC 8.7, hemoglobin 11.2, and platelet 128. Sodium 136, potassium 4.8, BUN 25, creatinine 1.01, CK 476 and LDL 65. DISCHARGE MEDICATIONS: The patient will continue all his previous medications; Invokana 300 mg p.o. daily, vitamin D3 1000 unit p.o. daily, Celexa 20 mg p.o. daily, clindamycin 300 mg p.o. q.6 hourly f or 10 days, Flexeril 10 mg p.o. daily, fentanyl patch every 72 hours, folic acid with multivitamin 1 tablet p.o. daily, gabapentin 300 mg p.o. b.i.d., Glucotrol 10 mg p.o. b.i.d., Victoza 1.8 mg subcuta neously daily, Actos 15 mg p.o. daily, ramipril 10 mg p.o. b.i.d., Zocor 20 mg p.o. at bedtime. Aspi rin cleared per neurosurgeon. CONTRAINDICATIONS: None. CODE STATUS: FULL CODE. INPATIENT CONSULTANTS: Dr. James was primary while in hospital. Sound team was consulted for med ical comanagement. Cardiology was consulted for elevated CK-MB. ALLERGIES: PENICILLIN. TEST RESULTS PENDING ON DISCHARGE: None. DISCHARGE PLAN: Post hospital, patient will follow up with Dr. Erika Palmer. The patient will follow up with primary care physician. HOSPITAL COURSE: A 62-year-old male who has chronic low back pain and he was electively admitted by Dr. James for lumbar laminectomy, which was done on 12/26/2017. Postoperatively, patient was at s urgical floor and we were consulted for medical comanagement. Patient's all medical problems remained stable and we resumed patient's home medication. During even ing time, patient had code green and he was complaining of acute chest pain and that is why we did ca rdiac enzymes that showed elevated CK as well as CK-MB. The patient was transferred to telemetry mariya or. We did serial cardiac enzymes. The patient's acute coronary syndrome was ruled out. His tropon ins remain negative. We did echocardiography which was normal. Cardiology evaluated this patient an d they recommended that at this point, no cardiac etiology found and he will resume aspirin when neur osurgeon clears him for aspirin. At this point, patient had routine blood test, which also showed acute kidney failure, hyperkalemia, and rhabdomyolysis. We will give him IV fluid and with that his renal function improved. His potass ium improved and his CK is also improving. Upon discharge, we asked him to continue all his previous medication and follow up with primary care physician. The patient is seen and examined at bedside today. He does not have any complaints today. Review of systems reviewed with him and negative. PHYSICAL EXAMINATION: VITAL SIGNS: Currently, vital signs, temperature 99.1, pulse 91, respiratory rate 18, saturation 93% on room air, weight 271 pounds, blood pressure 138/69. GENERAL: The patient is currently alert, awake, no acute distress. HEAD: Normocephalic, atraumatic. EYES: Pupils round and reactive to light. Extraocular muscle intact. ENT: Oropharynx within normal limits. Moist mucous membranes, no oral lesions. No pharyngeal eryth justin, no exudate. NECK: Supple, no JVD, no thyromegaly, no carotid bruit. LUNGS: Clear to auscultation without any rhonchi or rales. CARDIAC: S1, S2 regular without any murmur. ABDOMEN: Soft and benign without any tenderness. EXTREMITIES: No edema. During this hospital course after surgery, patient had drain and neurosurgeon gave him a prescription for clindamycin for 10 days.
--- NOTE | 2017-12-28 15:31 | PDOC.CTH ---
Cardiology Progress Note - Subjective Doing well. No recurrent episdoes of CP - Objective Vital Signs Temp Pulse Resp BP Pulse Ox 12/28/17 11:30 99.1 F 82 18 107/58 L 93 L 12/28/17 08:05 99.1 F 91 18 134/73 93 L 12/28/17 04:00 98.7 F 95 20 144/67 H 95 Weight 271 lb 8 oz 12/27/17 12/28/17 12/29/17 06:59 06:59 06:59 Intake Total 890 2874 Output Total 800 2250 Balance 90 624 - Physical Examination General/Neuro: alert & oriented x3, NAD, other: Neck: carotid US brisk, no JVD present, other: Lungs: CTA, unlabored respirations, other: Heart: PMI normal, RRR, other: Abdomen: no HSM, NT/ND, soft, other: Extremities: + femoral B - Labs Result Diagrams: 12/28/17 04:10 12/28/17 04:10 Troponin/CKMB CK-MB (CK-2) 9.4 ng/mL (0-6.6) H* 12/27/17 03:42 Troponin I 0.020 ng/mL (< 0.028) 12/27/17 03:42 - Assessment/Plan 1. CP 2. CAD Pt doing well No recurrent episodes. EF normal on echo. Treat medically. Pt with known 100% occlusion in past. Symptoms likely related to demand ischemia with BP of 200 systolic. Recommend control of BP. Fu with primary hardness inspector in [place].
--- NOTE | 2017-12-28 20:18 | EKG ---
Test Reason : STAT Blood Pressure : / mmHG Vent. Rate : 115 BPM Atrial Rate : 115 BPM P-R Int : 160 ms QRS Dur : 098 ms QT Int : 340 ms P-R-T Axes : 065 015 013 degrees QTc Int : 470 ms Sinus tachycardia Otherwise normal ECG No previous ECGs available Confirmed by RICARDO EWING (2) on 12/28/2017 8:17:36 PM Referred By: ROMELIA Confirmed By:RICARDO EWING
--- NOTE | 2017-12-28 20:18 | EKG ---
Test Reason : CODE GREEN Blood Pressure : / mmHG Vent. Rate : 115 BPM Atrial Rate : 115 BPM P-R Int : 152 ms QRS Dur : 082 ms QT Int : 326 ms P-R-T Axes : 063 023 008 degrees QTc Int : 450 ms Sinus tachycardia Low voltage QRS Septal infarct , age undetermined Abnormal ECG When compared with ECG of 26-DEC-2017 19:34, (Unconfirmed) Septal infarct is now Present ST no longer depressed in Anterior leads Nonspecific T wave abnormality now evident in Anterior leads Confirmed by RICARDO EWING (2) on 12/28/2017 8:17:44 PM Referred By: ROMELIA Confirmed By:RICARDO EWING
== END 2017-12-28 12:01 | disposition home or self-care (01) | DRG 460 ==
LOC: SURG A 05:27 → SJJU 12:38 → 2NO 19:58
PROVIDERS: ADMIT Neurological Surgery; ATTEND Neurological Surgery
PROC: 0SG00AJ Fusion of Lumbar Vertebral Joint with Interbody Fusion Device, Posterior Approach, Anterior Column, Open Approach (ICD-10-PCS; principal; 2017-12-26)
PROC: 01NB0ZZ Release Lumbar Nerve, Open Approach (ICD-10-PCS; 2017-12-26)
DX: M48.061 Spinal stenosis, lumbar region without neurogenic claudication (principal); N17.9 Acute kidney failure, unspecified; M62.82 Rhabdomyolysis; E66.9 Obesity, unspecified; Z68.39 Body mass index [BMI] 39.0-39.9, adult; I10 Essential (primary) hypertension; E78.5 Hyperlipidemia, unspecified; E11.9 Type 2 diabetes mellitus without complications; I25.10 Atherosclerotic heart disease of native coronary artery without angina pectoris; F41.9 Anxiety disorder, unspecified; F32.9 Major depressive disorder, single episode, unspecified; E87.5 Hyperkalemia; R07.9 Chest pain, unspecified; I25.2 Old myocardial infarction; Z88.0 Allergy status to penicillin; Z79.899 Other long term (current) drug therapy
CPT/HCPCS: 36415; 36416; 76001; 80048; 80053; 80061; 82550; 82553; 83036; 83880; 84443; 84484; 85025; 93005; 93010; 93306; A4216; C1713; C1768; G8978-GP-CK; G8979-GP-CJ; J0131; J0780; J1100; J1170; J1885; J1956; J2001; J2270; J2405; J2550; J2704; J3010; J3370; J3490

== ENCOUNTER 2018-01-10 16:15 | Outpatient (CLI) | payer MEDICARE ==
--- NOTE | 2018-01-10 17:42 | RAD ---
TWO VIEWS OF THE LUMBAR SPINE 01/10/18 COMPARISON: 11/22/17 HISTORY: Evaluate lumbar spine following surgery, lumbar stenosis with neurogenic claudication FINDINGS: The lateral examination demonstrates disc space narrowing with degenerative end plate change as well as posterior and anterior osteophyte formation at L3-4, L4-5 and L5-S1. There is atherosclerotic calc ifications of the abdominal aorta and its branches. There is multilevel lower lumbar spine facet hype rtrophy. Since the prior examination, there has been placement of right sided L3 and L4 pedicle screw s with a vertically oriented interlocking victoria and an intervening disc device. No evidence for hardwar e failure. IMPRESSION: Multilevel degenerative changes within the lumbar spine. Interval right sided posterior fusion at L3- 4. POS: OJ
== END 2018-01-10 16:16 | disposition home or self-care (01) ==
LOC: TBSIIMAG 16:15
PROVIDERS: ATTEND Neurological Surgery
DX: M48.062 Spinal stenosis, lumbar region with neurogenic claudication (principal); M47.896 Other spondylosis, lumbar region; Z98.1 Arthrodesis status
CPT/HCPCS: 72100

== ENCOUNTER 2018-03-07 13:14 | Outpatient (CLI) | payer MEDICARE ==
--- NOTE | 2018-03-07 14:18 | RAD ---
LUMBAR SPINE 2 VIEWS: Date: 03/07/18 HISTORY: M48.061. COMPARISON: Spine radiographs dated 01/10/18. FINDINGS: Right unilateral transpedicular screws are present at L3-L4 with diskectomy changes. No acute superim posed fracture or malalignment. Moderate narrowing L4-5 and L5-S1 disc spaces. No migration of the disc spacer. IMPRESSION: 1. Unchanged appearance of the posterior spinal fusion right side at L3-L4. 2. Possible aneurysmal dilatation of the distal abdominal aorta just above the iliac bifurcation. POS: OJ
== END 2018-03-07 13:15 | disposition home or self-care (01) ==
LOC: TBSIIMAG 13:14
PROVIDERS: ATTEND Neurological Surgery
DX: M48.061 Spinal stenosis, lumbar region without neurogenic claudication (principal); Z98.1 Arthrodesis status
CPT/HCPCS: 72100

== ENCOUNTER 2018-12-11 05:58 | Inpatient (IN) | payer MEDICARE ==
[2018-12-08 12:16] VITALS: BMI 35.9
[2018-12-11 06:40] LABS: #Eosinphils 0.1 thou/uL (0.0-0.7); #Lymphocytes 1.5 thou/uL (1.20-3.40); #Monocytes 0.8 thou/uL (0.11-0.59); #Neutrophils 3.8 thou/uL (1.40-6.50); %Basophils 0.5 % (0.0-1.0); %Eosinophils 1.8 % (0.0-10.0); %Lymphocytes 23.8 % (21.0-51.0); %Monocytes 12.5 % (0.0-10.0); %Neutrophils 61.3 % (42.0-75.0); Hemoglobin 12.8 g/dL (14.0-18.0); Mean Corpuscular HGB CONC 32.9 g/dL (32.0-36.0); Mean Corpuscular Hemoglobin 31.8 pg (27.0-31.0); Mean Corpuscular Volume 96.6 fL (78.0-98.0); Mean Platelet Volume 7.3 fL (7.4-10.4); Platelet Count 120 thou/uL (130-400); RBC Distribution Width 13.9 % (11.5-14.5); Red Blood Cell (RBC) Count 4.02 mill/uL (4.70-6.10); White Blood Cell (WBC) Count 6.3 thou/uL (4.8-10.8)
[2018-12-11] MEDS ORDERED: Sodium Chloride 0.9% 10 ML ONE (06:40)
[2018-12-11] MEDS ORDERED: Fentanyl 100 MCG/2 ML VIAL ONE ×4 (06:48→10:25)
[2018-12-11 06:54] LABS: Anion Gap 14 mmol/L (10-20); BUN (Urea Nitrogen) 28 mg/dL (8.4-25.7); Calc. Creatinine Clearance 114 mL/min (70-130); Calcium 9.5 mg/dL (7.8-10.44); Carbon Dioxide 22 mmol/L (23-31); Chloride 106 mmol/L (98-107); Estimated GFR-MDRD 72; Glucose 108 mg/dL (80-115); Potassium 4.7 mmol/L (3.5-5.1); Sodium 137 mmol/L (136-145)
[2018-12-11] MEDS ORDERED: Clindamycin/D5W 900 mg/50 ml Premix Bag ONE (06:56)
[2018-12-11] MEDS ORDERED: Levofloxacin 500 mg/D5W 100 ml Premix Bag ONE (06:56)
[2018-12-11] MEDS ORDERED: Promethazine HCl 25 MG/ML VIAL IM PRN ×2 (08:50→10:56)
[2018-12-11] MEDS ORDERED: Promethazine HCl 25 MG/ML VIAL SLOW IVP PRN (08:50)
[2018-12-11] MEDS ORDERED: HYDROmorphone 2 MG/ML VIAL SLOW IVP PRN (08:50)
[2018-12-11] MEDS ORDERED: Ondansetron HCl/PF 4 MG/2 ML Vial IVP PRN (08:50)
[2018-12-11] MEDS ORDERED: HYDROmorphone 2 MG/ML VIAL ONE (08:58)
[2018-12-11] MEDS ORDERED: Midazolam HCl 2 mg/2 ml Vial ONE (09:28)
[2018-12-11] MEDS ORDERED: Milk Of Magnesia 30 ML UDCUP PO PRN (10:56)
[2018-12-11] MEDS ORDERED: Promethazine 25 MG TAB PO PRN (10:56)
[2018-12-11] MEDS ORDERED: traMADol HCl 50 MG TAB PO PRN (10:56)
[2018-12-11] MEDS ORDERED: Promethazine HCl 12.5 MG SUPP PR PRN (10:56)
[2018-12-11] MEDS ORDERED: HYDROcodone/Acetaminophen 10/325 mg Tablet PO PRN (10:56)
[2018-12-11] MEDS ORDERED: Mag-Al 1200 mg/1200 mg/30 ML UDCUP PO PRN (10:56)
[2018-12-11] MEDS ORDERED: Morphine 2 MG/ML SYRINGE SLOW IVP PRN (11:01)
[2018-12-11] MEDS ORDERED: Ondansetron PF 4 MG/2 ML Vial IM PRN (11:01)
[2018-12-11] MEDS: tiZANidine HCl 4 MG TAB PO PRN (11:14)
[2018-12-11] MEDS: HYDROcodone/Acetaminophen 10/325 mg Tablet PO PRN ×3 (11:14→21:06)
[2018-12-11] MEDS: Sodium Chloride 0.9% 1,000 ML IV SCH (11:14)
[2018-12-11] MEDS: Morphine 4 MG/ML VIAL SLOW IVP PRN (12:43)
[2018-12-11] MEDS ORDERED: cloNIDine 0.1 MG TAB PO PRN (14:21)
[2018-12-11] MEDS ORDERED: hydrALAZINE 20 MG/ML VIAL SLOW IVP PRN (14:21)
[2018-12-11] MEDS ORDERED: Dextrose 5% in Water 1,000 ML IV PRN (14:22)
[2018-12-11] MEDS ORDERED: Dextrose 50% Abboject 50 ML SYRINGE SLOW IVP PRN (14:22)
[2018-12-11] MEDS ORDERED: HumaLOG 300 UNITS/3 ML VIAL SC PRN ×2 (14:22)
[2018-12-11] MEDS ORDERED: Nitroglycerin 0.4 MG TAB (25 Tab Bottle) SL SCH (14:30)
--- NOTE | 2018-12-11 15:23 | OP ---
DATE OF PROCEDURE: 12/11/2018 [employer] LOADER: Ivan Patino PA-C PROCEDURES PERFORMED: Removal of hardware, L3-L4; exploration of spinal fusion, L3-L4; posterolateral arthrodesis; pedicle screw instrumentation, L3-L4; BMP; cancellous bone chips. DESCRIPTION OF PROCEDURE: The patient was brought to the operating room and intubated. He was rolled in a prone position on gel-filled chest rolls. The previous incision was reopened, and the L3-L4 level was identified. The right-sided hardware was identified. The nuts and rods were removed, and the screws were explored. As expected, the L4 screw seemed to be loose and the L3 screw was solid. We removed the L4 screw and replaced it with an 8.5-mm diameter screw of the same length. We explored the spinal fusion as it was not appeared to be solid. We next placed pedicle screws at left L3 and left L4 using lateral fluoroscopic guidance. The victoria was secured between both sets of screws connected by nuts, which were finally tightened. The wound was extensively irrigated, and MAC hemostasis was secured. BMP was soaked on Gelfoam pledgets, wrapped around cancellous bone chips, and laid over the left-sided laminar surfaces at L3-L4 for the purpose of arthrodesis. Vancomycin powder was applied. The wound was closed in anatomic layers. Job ID: [id number]
--- NOTE | 2018-12-11 15:25 | PDOC.PN ---
- Subjective Encounter Start Date: 12/11/18 Encounter Start Time: 15:23 Subjective: pt seen and examined. s/p Lumbar Laminectomy -: c/o 5-6/10 pain in back and being very uncomfortable -: no nausea,vomiting,abd pain.no CP/SOB - Objective MAR Reviewed: Yes Vital Signs & Weight: Vital Signs (12 hours) Temp Pulse Resp BP Pulse Ox 12/11/18 13:30 146/73 H 12/11/18 12:30 130/70 12/11/18 11:00 97.9 F 84 18 169/90 H 97 Weight Weight 250 lb Result Diagrams: 12/11/18 06:25 12/11/18 06:25 Phys Exam - Physical Examination Constitutional: NAD uncomfortable HEENT: PERRLA, moist MMs, sclera anicteric, oral pharynx no lesions Neck: no nodes, no JVD, supple, full ROM Respiratory: no wheezing, no rales, no rhonchi, clear to auscultation bilateral Cardiovascular: RRR, no significant murmur Gastrointestinal: soft, non-tender, no distention, positive bowel sounds Musculoskeletal: no edema, pulses present Neurological: non-focal, normal sensation, moves all 4 limbs Psychiatric: normal affect, A&O x 3 Skin: no rash Dx/Plan (1) Post-op pain Code(s): G89.18 - OTHER ACUTE POSTPROCEDURAL PAIN Status: Acute Comment: will give 1 dose toradol w Renal Fx monitoring (2) S/P lumbar laminectomy Code(s): Z98.890 - OTHER SPECIFIED POSTPROCEDURAL STATES Status: Acute Comment: tmanagement per NS (3) Anxiety and depression Code(s): F41.9 - ANXIETY DISORDER, UNSPECIFIED; F32.9 - MAJOR DEPRESSIVE DISORDER, SINGLE EPISODE, UNSPECIFIED Status: Chronic (4) CAD (coronary artery disease) Code(s): I25.10 - ATHSCL HEART DISEASE OF [place] CORONARY ARTERY W/O ANG PCTRS Status: Chronic Comment: stable. cont HUBER-I and statin. not on any BB . 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 (8) Obesity (BMI 30-39.9) Code(s): E66.9 - OBESITY, UNSPECIFIED Status: Chronic - Plan PT/OT, respiratory therapy, incentive spirometry, DVT proph w/SCDs add prn meds.am labs -: IM team will follow -: pain control per primary team -: HD stable * . Review of Systems - Review of Systems Constitutional: negative: fever, chills, sweats, weakness, malaise, other ENT: negative: Ear Pain, Ear Discharge, Nose Pain, Nose Discharge, Nose Congestion, Mouth Pain, Mouth Swelling, Throat Pain, Throat Swelling, Other Respiratory: negative: Cough, Dry, Shortness of Breath, Hemoptysis, SOB with Excertion, Pleuritic Pain, Sputum, Wheezing Cardiovascular: negative: chest pain, palpitations, orthopnea, paroxysmal nocturnal dyspnea, edema, light headedness, other Gastrointestinal: negative: Nausea, Vomiting, Abdominal Pain, Diarrhea, Constipation, Melena, Hematochezia, Other Genitourinary: negative: Dysuria, Frequency, Incontinence, Hematuria, Retention , Other Musculoskeletal: Back Pain. negative: Neck Pain, Shoulder Pain, Arm Pain, Hand Pain, Leg Pain, Foot Pain, Other Neurological: negative: Weakness, Numbness, Incoordination, Change in Speech, Confusion, Seizures, Other - Medications/Allergies Allergies/Adverse Reactions: Allergies Allergy/AdvReac Type Severity Reaction Status Date / Time Penicillins Allergy Mild Verified 12/08/18 12:16 Medications: Current Medications Hydrocodone Bitart/Acetaminophen (Cutler 10/325) 1 tab PO Q4H PRN PRN Reason: PAIN (1-3) Hydrocodone Bitart/Acetaminophen (Cutler 10/325) 2 tab PO Q4H PRN PRN Reason: PAIN (4-6) Last Admin: 12/11/18 11:14 Dose: 2 tab Al Hydroxide/Mg Hydroxide (Maalox) 30 ml PO Q4H PRN PRN Reason: Heartburn or Indigestion Atorvastatin Calcium (Lipitor) 10 mg PO HS RUI Clonazepam (Klonopin) 1 mg PO HS RUI Clonidine (Catapres) 0.1 mg PO Q4H PRN PRN Reason: sbp>160 Dextrose/Water (Dextrose 50%) 25 gm SLOW IVP PRN PRN PRN Reason: Hypoglycemia Gabapentin (Neurontin) 300 mg PO BID COUNT INCLUDES THE [facility] Glipizide (Glucotrol) 10 mg PO BID-AC COUNT INCLUDES THE [facility] Glucagon (Glucagon) 1 mg IM PRN PRN PRN Reason: Hypoglycemia Hydralazine HCl (Apresoline) 10 mg SLOW IVP Q4H PRN PRN Reason: SBP>170 Sodium Chloride (Normal Saline 0.9%) 1,000 mls @ 75 mls/hr IV .[id number] COUNT INCLUDES THE [facility] Last Admin: 12/11/18 11:14 Dose: 1,000 mls Clindamycin Phosphate/Dextrose (900 mg/ Device) 50 mls @ 100 mls/hr IVPB 0000, 1600 COUNT INCLUDES THE [facility] Stop: 12/12/18 00:29 Dextrose/Water (D5w) 1,000 mls @ 0 mls/hr IV .Q0M PRN PRN Reason: Hypoglycemia Insulin Human Lispro (Humalog) 0 units SC .MODERATE SLIDING SC PRN PRN Reason: Moderate Correctional Scale Insulin Human Lispro (Humalog) 0 units SC .BEDTIME SLIDING SC PRN PRN Reason: Bedtime Correctional Scale Ketorolac Tromethamine (Toradol) 15 mg IVP ONE COUNT INCLUDES THE [facility] Stop: 12/16/18 15:31 Magnesium Hydroxide (Milk Of Magnesium) 30 ml PO Q12H PRN PRN Reason: Constipation Methocarbamol (Robaxin) 500 mg PO BIDPRN PRN PRN Reason: Muscle Spasm Morphine Sulfate (Morphine) 2 mg SLOW IVP Q1H PRN PRN Reason: MOD BREAKTHRU PAIN Morphine Sulfate (Morphine) 4 mg SLOW IVP Q1H PRN PRN Reason: SEVERE BREAKTHROUGH PAIN Last Admin: 12/11/18 12:43 Dose: 4 mg Multivitamins (Theragran) 1 tab PO DAILY COUNT INCLUDES THE [facility] Nitroglycerin (Nitrostat) 0.4 mg SL Q5MIN COUNT INCLUDES THE [facility] Ondansetron HCl (Zofran) 4 mg IM Q8H PRN PRN Reason: Nausea/Vomiting Patient's Home Medication [Victoza 1.8mg] Liraglutide 1.8 each SC DAILY COUNT INCLUDES THE [facility] Pioglitazone HCl (Actos) 15 mg PO DAILY RUI Promethazine HCl (Phenergan) 12.5 mg IM Q4H PRN PRN Reason: Nausea/Vomiting Promethazine HCl (Phenergan) 12.5 mg PO Q4H PRN PRN Reason: Nausea/Vomiting Promethazine HCl (Phenergan Suppository) 12.5 mg W[place] Q4H PRN PRN Reason: Nausea/Vomiting Ramipril (Altace) 10 mg PO BID RUI Sodium Chloride (Flush - Normal Saline) 10 ml IVF PRN PRN PRN Reason: Saline Flush Tizanidine HCl (Zanaflex) 4 mg PO Q6H PRN PRN Reason: MUSCLE SPASM Last Admin: 12/11/18 11:14 Dose: 4 mg Tramadol HCl (Ultram) 50 mg PO Q6H PRN PRN Reason: PAIN (1-3) Tramadol HCl (Ultram) 100 mg PO Q6H PRN PRN Reason: PAIN (4-6)
[2018-12-11] MEDS: Clindamycin/D5W 900 MG in Premix Bag 1 BAG IVPB SCH ×2 (15:47→23:21)
[2018-12-11] MEDS: Ketorolac Tromethamine 30 MG/ML VIAL IVP SCH (16:18)
[2018-12-11] MEDS: glipiZIDE 10 MG TAB PO SCH (16:18)
[2018-12-11] MEDS ORDERED: Rocuronium Bromide 10 MG/ML (10ML VIAL) ONE (16:41)
[2018-12-11] MEDS ORDERED: PROPOFOL 200 MG/20 ML VIAL ONE (16:41)
[2018-12-11] MEDS ORDERED: ePHEDrine 50 MG/ML VIAL ONE (16:41)
[2018-12-11] MEDS ORDERED: Glycopyrrolate 0.2 MG/ML 5 ML SYRINGE ONE (16:41)
[2018-12-11] MEDS ORDERED: PHENYLEPHRINE-NS 100 MCG/ML 10 ML SYRINGE ONE (16:41)
[2018-12-11] MEDS ORDERED: Lidocaine 1% PF 5 ML VIAL ONE (16:41)
[2018-12-11] MEDS ORDERED: Ondansetron PF 4 MG/2 ML Vial ONE (16:41)
[2018-12-11] MEDS: Methocarbamol 500 MG TAB PO PRN (18:14)
[2018-12-11] MEDS: Gabapentin 300 MG CAP PO SCH (21:05)
[2018-12-11] MEDS: Atorvastatin Calcium 10 MG TAB PO SCH (21:05)
[2018-12-11] MEDS: clonazePAM 1 MG TAB PO SCH (21:05)
[2018-12-11] MEDS: Ramipril 5 MG CAP PO SCH (21:05)
[2018-12-12] MEDS: tiZANidine HCl 4 MG TAB PO PRN ×3 (00:53→22:13)
[2018-12-12] MEDS: traMADol HCl 50 MG TAB PO PRN ×3 (00:53→22:14)
[2018-12-12] MEDS: Sodium Chloride 0.9% 1,000 ML IV SCH ×2 (00:58→14:57)
[2018-12-12] MEDS: HYDROcodone/Acetaminophen 10/325 mg Tablet PO PRN ×3 (06:12→18:44)
--- NOTE | 2018-12-12 06:22 | PRG ---
DATE OF SERVICE: 12/12/2018 SUBJECTIVE: Patient is a 63-year-old male status post revision of L3-L4 lumbar fusion. Following the surgery, he was transitioned to the Med-Surg floor, where he has had some issues overnight with pain control. He has been slow to mobilize secondary to this. He denies any leg weakness, numbness, tingling, or radicular pain at this time. No bowel or bladder issues. He has been using a bedside urinal. He is tolerating a regular diet and voiding easily. His incision is dry and intact. OBJECTIVE: GENERAL: On exam this morning, he is awake, alert, in no acute distress. EXTREMITIES: He has free active range of motion of all extremities. No focal motor weakness or reflex asymmetry. PLAN: We will plan to mobilize this morning. Patient wants to go home today, but thus far he has not mobilized much. We will get him an LSO brace and get him out of bed this morning with assistance of nursing and physical therapy. If he is able to ambulate without any difficulty, I anticipate he go this afternoon. Job ID: [id number]
[2018-12-12] MEDS: glipiZIDE 10 MG TAB PO SCH ×2 (06:30→18:46)
[2018-12-12] MEDS ORDERED: LIRAGLUTIDE SC SCH (09:00)
[2018-12-12] MEDS ORDERED: Multivit, Therapeutic 1 TAB PO SCH (09:00)
[2018-12-12] MEDS: Gabapentin 300 MG CAP PO SCH ×2 (09:02→19:57)
[2018-12-12] MEDS: Pioglitazone HCl 15 MG TAB PO SCH (09:02)
[2018-12-12] MEDS: Ramipril 5 MG CAP PO SCH ×2 (09:03→19:57)
--- NOTE | 2018-12-12 09:37 | PDOC.PN ---
- Subjective Encounter Start Date: 12/12/18 Encounter Start Time: 09:35 Mr. Harper was seen today in follow-up of post lumbar laminectomy. He does not have any complaints. The back pain is better controlled. - Objective MAR Reviewed: Yes Vital Signs & Weight: Vital Signs (12 hours) Temp Pulse Resp BP Pulse Ox 12/12/18 07:19 97.8 F 82 18 93/52 L 97 12/12/18 04:00 99.1 F 79 16 130/74 97 12/11/18 23:36 98.2 F 66 16 119/56 L 98 Weight Weight 250 lb I&O: 12/11/18 12/12/18 12/13/18 06:59 06:59 06:59 Intake Total 1470 Output Total 1150 Balance 320 Result Diagrams: 12/11/18 06:25 12/11/18 06:25 Additional Labs: Accuchecks 12/12/18 12/11/18 12/11/18 05:24 21:59 16:10 POC Glucose 82 103 96 Phys Exam - Physical Examination HEENT: PERRLA Respiratory: no wheezing, no rales, no rhonchi, clear to auscultation bilateral Cardiovascular: RRR, no significant murmur, no rub Gastrointestinal: soft, non-tender, no distention, positive bowel sounds Musculoskeletal: no edema, pulses present Dx/Plan (1) Diabetes type 2, uncontrolled Code(s): E11.65 - TYPE 2 DIABETES MELLITUS WITH HYPERGLYCEMIA Status: Chronic Comment: Add ISS w accuchecks ACHS (2) CAD (coronary artery disease) Code(s): I25.10 - ATHSCL HEART DISEASE OF [place] CORONARY ARTERY W/O ANG PCTRS Status: Chronic Comment: stable. cont HUBER-I and statin. not on any BB . 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 (4) Dyslipidemia Code(s): E78.5 - HYPERLIPIDEMIA, UNSPECIFIED Status: Chronic Comment: cont statin (5) S/P lumbar laminectomy Code(s): Z98.890 - OTHER SPECIFIED POSTPROCEDURAL STATES Status: Acute Comment: tmanagement per NS - Plan * Diabetes Mellitus- his blood glucose is well controlled for now * HTN- blood pressure is stable * Lumbar Laminectomy- continue treatment as per Neurosurgery * CAD- stable.
[2018-12-12] MEDS: Morphine 4 MG/ML VIAL SLOW IVP PRN ×2 (11:08→22:14)
[2018-12-12] MEDS: Methocarbamol 500 MG TAB PO PRN (14:54)
[2018-12-12] MEDS: Ketorolac Tromethamine 30 MG/ML VIAL IVP SCH (19:48)
[2018-12-12] MEDS: clonazePAM 1 MG TAB PO SCH (19:57)
[2018-12-12] MEDS: Atorvastatin Calcium 10 MG TAB PO SCH (19:58)
[2018-12-12] MEDS ORDERED: fentaNYL 50 mcg/hour Patch TD SCH (20:00)
[2018-12-13] MEDS: HYDROcodone/Acetaminophen 10/325 mg Tablet PO PRN ×3 (00:25→10:54)
[2018-12-13] MEDS: Sodium Chloride 0.9% 1,000 ML IV SCH (01:16)
[2018-12-13] MEDS: glipiZIDE 10 MG TAB PO SCH (06:32)
[2018-12-13 08:21] VITALS: BP 149/64; TEMP 98.4
--- NOTE | 2018-12-13 08:52 | DIS ---
DATE OF ADMISSION: 12/11/2018 DATE OF DISCHARGE: 12/13/2018 The patient is a 63-year-old male, status post a revision of lumbar fusion at L3 and L4. Following the surgery, he was transitioned to the Med/Surg floor, where his pain was well controlled with p.o. medications, he was tolerating a regular diet, and he was voiding appropriately. He mobilized with the assistance of Physical Therapy. He is ambulating short distances in his room and has been sitting up in the bedside chair. His incision has been remained intact, required one initial dressing change, but none since. The patient is awake, alert, in no acute distress. He has free active range of motion of all extremities. No focal motor weakness or reflex asymmetry. Incision is dry and intact. We will plan to dismiss the patient to home. His pain management doctor is managing his pain medicines. I will follow up with the patient in 2 weeks. I have discussed home care precautions. Job ID: [id number]
[2018-12-13] MEDS: Gabapentin 300 MG CAP PO SCH (09:39)
[2018-12-13] MEDS: Pioglitazone HCl 15 MG TAB PO SCH (09:39)
[2018-12-13] MEDS: tiZANidine HCl 4 MG TAB PO PRN (11:11)
== END 2018-12-13 11:30 | disposition home or self-care (01) | DRG 460 ==
LOC: SURG A 05:58 → SURG B 10:03
PROVIDERS: ADMIT Neurological Surgery; ATTEND Neurological Surgery
PROC: 0SG00K1 Fusion of Lumbar Vertebral Joint with Nonautologous Tissue Substitute, Posterior Approach, Posterior Column, Open Approach (ICD-10-PCS; principal; 2018-12-11)
PROC: 3E0U0GB Introduction of Recombinant Bone Morphogenetic Protein into Joints, Open Approach (ICD-10-PCS; 2018-12-11)
DX: M43.16 Spondylolisthesis, lumbar region (principal); F41.9 Anxiety disorder, unspecified; F32.9 Major depressive disorder, single episode, unspecified; I25.10 Atherosclerotic heart disease of native coronary artery without angina pectoris; E11.9 Type 2 diabetes mellitus without complications; E78.5 Hyperlipidemia, unspecified; I10 Essential (primary) hypertension; E66.9 Obesity, unspecified; Z90.49 Acquired absence of other specified parts of digestive tract; Z90.89 Acquired absence of other organs; Z68.35 Body mass index [BMI] 35.0-35.9, adult
CPT/HCPCS: 36415; 36416; 76000; 80048; 85025; C1713; J1170; J1885; J1956; J2250; J2270; J2405; J3010; J3370; J3490

== ENCOUNTER 2018-12-26 15:17 | Outpatient (CLI) | payer MEDICARE ==
--- NOTE | 2018-12-26 15:43 | RAD ---
LUMBAR SPINE TWO VIEWS: HISTORY: Follow up post surgery. Spondylolisthesis at L3-L4. COMPARISON: 03/07/2018 FINDINGS: Recent postop changes at L3-L4, with bilateral pedicle screws. Generalized spondylosis. No acute fr acture or malalignment. IMPRESSION: 1. Bilateral pedicle screw placement changes at L3-L4. 2. Generalized spondylosis. POS: [facility]
== END 2018-12-26 15:18 | disposition home or self-care (01) ==
LOC: TBSIIMAG 15:17
PROVIDERS: ATTEND Neurological Surgery
DX: M43.16 Spondylolisthesis, lumbar region (principal); M47.816 Spondylosis without myelopathy or radiculopathy, lumbar region; Z98.890 Other specified postprocedural states
CPT/HCPCS: 72100

== ENCOUNTER 2019-02-20 13:47 | Outpatient (CLI) | payer MEDICARE ==
--- NOTE | 2019-02-20 14:08 | RAD ---
EXAM: XR Lumbar Spine 2 Or 3 View DATE: 02/20/2019 12:00 AM INDICATION: Low back pain COMPARISON: December 26, 2018 FINDING: Posterior lateral spinal instrumentation at L3-4 is stable. Intervertebral disc cage is sta ble. Moderate disc degenerative disease at L4-5 and L5-S1 is stable. Mild aneurysmal dilatation of the infrarenal abdominal aorta to 3.5 cm stable. There is endovascular stents are seen within the reg ion of the common iliac arteries. There is mild degenerative scoliosis of the lumbar spine. No acute fracture is evident. IMPRESSION: Stable postoperative lumbar spine and multilevel spondylosis. Stable aneurysmal dilatatio n of the infrarenal abdominal aorta.
== END 2019-02-20 13:48 | disposition home or self-care (01) ==
LOC: TBSIIMAG 13:47
PROVIDERS: ATTEND Neurological Surgery
DX: M54.5 Low back pain (principal); M47.816 Spondylosis without myelopathy or radiculopathy, lumbar region; I77.811 Abdominal aortic ectasia; Z98.890 Other specified postprocedural states
CPT/HCPCS: 72100

== ENCOUNTER 2019-09-12 10:21 | Outpatient (CLI) | payer MEDICARE ==
--- NOTE | 2019-09-12 12:40 | RAD ---
EXAM: 2 views of the lumbosacral spine HISTORY: Low back pain with recent lumbar surgery COMPARISON: 02/20/2019 FINDINGS: 2 views of the lumbosacral spine shows the patient is status post posterior fusion of L2-L4 with bilateral pedicle screws. No perihardware lucency is seen. A disc spacer is seen within the L3/4 disc space. The vertebral bodies demonstrate normal alignment without subluxation. Moderate dege nerative changes are seen throughout the lumbar spine with intervertebral disc space narrowing and osteophyte formation. Midline skin eladia are seen in the back. The sacroiliac joints are unremarkable. Vascular stents ar e seen in the pelvis. IMPRESSION: Postsurgical and degenerative changes of lumbar spine as above
== END 2019-09-12 10:22 | disposition home or self-care (01) ==
LOC: TBSIIMAG 10:21
PROVIDERS: ATTEND Neurological Surgery
DX: M47.26 Other spondylosis with radiculopathy, lumbar region (principal); Z98.1 Arthrodesis status
CPT/HCPCS: 72100